=== PATIENT | female | born 1985 | race Caucasian/White ===

== ENCOUNTER 2024-02-08 22:21 | Emergency (ER) | payer OTHER, SELFPAY ==
--- NOTE | ~2024-02-08 | CT_ITS ---
EXAMINATION: CT abdomen pelvis w con DATE: 02/09/2024 00:17 INDICATION: Left upper quadrant abdominal pain. TECHNIQUE: Computed tomography (CT) of the abdomen and pelvis was performed with 100 mL Omnipaque 350 intravenous contrast. Automated exposure control and iterative reconstruction technique were employe d. The dose-length product was 534.56 mGy-cm. COMPARISON: None. FINDINGS: The visualized portions of the lung bases demonstrate mild atelectasis. No pleural effusion . The heart size is normal. No pericardial effusion. There is a small sliding hiatal hernia. There ar e surgical changes of the stomach. The liver, gallbladder, spleen, pancreas, adrenal glands, and kidn eys are normal. There are no dilated loops of bowel. The appendix is normal. There are no pathologica lly enlarged lymph nodes. There is physiologic fluid in the pelvis. There is widespread edema of the intra-abdominal fat and body wall fat. There is a 3.7 cm mass in the left adnexa. There is moderate l ower lumbar spondylosis. IMPRESSION: 1. 3.7 cm mass in the left adnexa. The differential diagnosis includes pedunculated fibroid or an ova hayes mass such as a hemorrhagic cyst or less likely a neoplasm. 2. Widespread edema of the intra-abdominal fat and body wall fat. 3. Small sliding hiatal hernia. Gastric bypass procedure. Reviewed, dictated and finalized at location A. IMPRESSION: 1. 3.7 cm mass in the left adnexa. The differential diagnosis includes peduncul ated fibroid or an ovarian mass such as a hemorrhagic cyst or less likely a margarito plasm. 2. Widespread edema of the intra-abdominal fat and body wall fat. 3. Small sliding hiatal hernia. Gastric bypass procedure.
[2024-02-08 22:19] VITALS: BP 125/93; PULSE 60; RESP 14; TEMP 36.5; O2SAT 100
[2024-02-08 22:41] VITALS: PULSE 58; RESP 14; O2SAT 100
[2024-02-08 22:45] VITALS: PULSE 63; RESP 17; O2SAT 99
[2024-02-08 23:04] LABS: Alanine Aminotransferase 17 U/L (6-35); Albumin Level 3.5 g/dL (3.5-5.1); Alkaline Phosphatase 75 U/L (38-126); Anion Gap 2 mmol/L (8-16); Aspartate Amino Transferase 31 U/L (14-36); Bilirubin,Total 0.4 mg/dL (0.2-1.3); Blood Urea Nitrogen 10 mg/dL (7-17); Calcium 8.2 mg/dL (8.4-10.2); Carbon Dioxide 22 mmol/L (22-30); Chloride 111 mmol/L (98-107); Estimated CRCL calculation 201 ml/min; Estimated Glomerular Filt Rate > 60; Glucose 88 mg/dL (65-110); Lipase 65 U/L (23-300); Potassium 3.4 mmol/L (3.4-5.0); Sodium 135 mmol/L (137-145)
[2024-02-08 23:22] LABS: Basophils Percent Auto 0.3 % (0.2-1.2); Eosinophils Absolute Auto 0.2 K/mm3 (0-0.3); Eosinophils Percent Auto 5.3 % (0-4.4); Immature Granulocyte Absolute 0.01 K/mm3 (0.00-0.031); Immature Granulocyte Percent A 0.3 % (0-0.5); Lymphocytes Absolute Auto 1.38 K/mm3 (0.9-3.2); Lymphocytes Percent Auto 38.3 % (18.3-44.2); Mean Corpuscular HGB Conc 25.3 g/dl (32-36); Mean Corpuscular Hemoglobin 17.5 pg (26-34); Mean Platelet Volume 9.6 fl (7.4-10.4); Monocytes Absolute Auto 0.2 K/mm3 (0.1-0.6); Monocytes Percent Auto 6.7 % (2.6-8.5); Neutrophils Absolute Auto 1.8 K/mm3 (1.3-6.7); Neutrophils Percent Auto 49.1 % (45.5-73.1); Platelet Count Result 171 k/mm3 (150-375); Red Blood Count 2.29 M/mm3 (4.2-5.4); White Blood Count 3.6 K/mm3 (4.5-10.0)
--- NOTE | 2024-02-08 23:26 | ED.ABDPAIN ---
HPI - Abdominal Pain General Chief Complaint: Abdominal Pain <THOMAS Lindo Last Filed: 02/09/24 00:55> Stated Complaint: abd pain <THOMAS Lindo Last Filed: 02/09/24 00:55> Time Seen by Provider: 02/08/24 22:39 <Aristides Verdin PA-C - Last Filed: 02/09/24 00:55> Source: patient <THOMAS Lindo Last Filed: 02/09/24 00:55> Mode of arrival: ambulatory <THOMAS Lindo Last Filed: 02/09/24 00:55> Limitations: no limitations <THOMAS Lindo Last Filed: 02/09/24 00:55> History of Present Illness HPI narrative: This is a 38-year-old female who presents to the ED via EMS with chief complaint sudden-onset left abdominal pain beginning around 12:00 p.m. today. Reports that it happened around lunchtime but she did not eat any food out of the ordinary. She reports after dinner time she had repeat bout of the same pain. She also reports nausea but no vomiting or diarrhea. 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 Conversational and pleasant. HEAD: Normocephalic, atraumatic. EYES: PERRLA and EOMI. ENT: Nares clear, no rhinorrhea or epistaxis. Mucous membranes moist. Oropharynx without tonsillar hypertrophy exudate or other lesions. NECK: Supple. No adenopathy or masses. CHEST: No respiratory distress. Clear to auscultation. No wheezes rales or rhonchi HEART: Regular rate and rhythm. No murmur heard. Normal peripheral pulses. ABDOMEN: Mild left upper quadrant and epigastric tenderness. Soft, nondistended, normal active bowel sounds. MSK: Normal range of motion. No edema. SKIN: Warm, dry, no rash. NEURO: Alert and oriented x3. No focal deficits. PSYCH: Normal mood and affect. <Aristides Verdin PA-C - Last Filed: 02/09/24 00:55> Course Course Emergency Course: 38-year-old female with a history of Argenis-en-Y presenting with abdominal pain. The patient's pain resolved without intervention shortly after arrival. CT was interpreted by [facility] has swollen the mid mesentery with says he see a mesenteric edema. This may reflect sequela nonobstructive internal hernia w/ venous attenuation and mesenteric engorgement. Patient's symptoms have completely resolved so it is possible that her mesentery twisted and then untwisted spontaneously. Regardless at this time and throughout the rest of her stay she has been pain-free. Incidentally the patient was found have a hemoglobin of 3.9. She has a history of iron deficiency anemia but has not taken her iron supplementation quite some time. Patient was given 3 units of packed red blood cells. On re-evaluation she says she is feeling significantly better. After was reassessed multiple times during her stay and her abdomen has been soft, nontender with no rebound. Patient does not have a primary care physician's area. she will be referred to a primary care physician and instructed to obtain referral to a surgeon to take on a new argenis and Y patient. Patient was given return precautions for abdominal pain, fevers and nausea on. Stressed importance of appropriate follow-up. She will be discharged on supplementation and stool softeners. <Erasmo Ron MD - Last Filed: 02/09/24 18:19> Vital Signs Vital signs: Vital Signs Temperature 97.7 F 02/08/24 22:19 Pulse Rate 60 02/08/24 22:19 Respiratory Rate 14 02/08/24 22:19 Blood Pressure 125/93 H 02/08/24 22:19 Pulse Oximetry 100 02/08/24 22:19 Oxygen Deliver
[2024-02-08 23:35] LABS: Hematocrit 15.8 % (37.0-47.0)
[2024-02-08 23:39] LABS: Platelet Estimate Adequate (Adequate)
[2024-02-08 23:40] LABS: Anisocytosis 2+; Hypochromasia 2+; Ovalocytes 1+; Schistocytes None Seen
[2024-02-08 23:46] VITALS: BP 110/61; PULSE 65; RESP 14; O2SAT 100
[2024-02-08] MEDS: SODIUM CHLORIDE 0.9% IV 1,000 ML 999 ML IV CONT (23:47)
[2024-02-09] VITALS (7 sets, daily range): BP systolic 103–118; BP diastolic 39–62; PULSE 45–61; RESP 14–18; TEMP 36.6–37.1; O2SAT 100
[2024-02-09 00:02] LABS: Iron 16 ug/dL (37-170)
[2024-02-09 00:11] LABS: Percent Iron Saturation 3 % (20-50)
[2024-02-09 00:38] LABS: Ferritin 3.51 ng/mL (6.24-137)
[2024-02-09 04:55] LABS: Appearance Urine Clear (Clear); Bilirubin Urine Negative (Negative); Blood Urine Negative (Negative); Color Urine Yellow (Yellow); Glucose Urine UA Negative (Negative); Ketones Urine Negative (Negative); Leukocyte Esterase Ur Negative LEU/UL (Negative); Nitrate Urine Negative (Negative); Protein Urine Negative (Negative); pH Urine 7.5 (5.0-9.0)
[2024-02-09 05:13] LABS: Add Urine Microscopic? NO; Specific Grav Ur 1.037 (1.001-1.035)
--- NOTE | 2024-02-09 05:14 | PC.NURSE ---
First and second units of blood administered during downtime. See downtime documentation.
== END 2024-02-09 09:00 | disposition home or self-care (01) ==
PROVIDERS: Emergency Medicine; Emergency Provider Physician Assistant
DX: R10.9 Unspecified abdominal pain (principal); D50.9 Iron deficiency anemia, unspecified; Z98.84 Bariatric surgery status; K44.9 Diaphragmatic hernia without obstruction or gangrene; N94.89 Other specified conditions associated with female genital organs and menstrual cycle; R60.9 Edema, unspecified
CPT/HCPCS: 36415; 36430; 74177; 80053; 81025; 82607; 82728; 83540; 83550; 83605; 83690; 85025; 86850; 86900; 86901; 86923; 96360; 99285; J7030; J7050; P9016; Q9967